=== PATIENT | male | born 1945 | race Caucasian/White ===

== ENCOUNTER 2020-08-24 13:41 | Inpatient (IN) | payer MEDICARE, OTHER ==
[~2020-08-24] VITALS: Ht 172.7 cm; Wt 83.9 kg
[2020-08-24 15:29] LABS: HEMOGLOBIN 12.5 gm/dl (14.0-17.5); RED BLOOD COUNT 4.14 M/UL (4.20-5.50); WHITE BLOOD COUNT 11.7 K/UL (4.5-11.0)
[2020-08-24] MEDS ORDERED: ATORVASTATIN CA20 MG PO (15:36)
[2020-08-24] MEDS ORDERED: MOBIC7.5 MG PO (15:37)
[2020-08-24] MEDS ORDERED: PROPRANOLOL HCL20 MG PO (15:38)
[2020-08-24] MEDS ORDERED: NORCO 5-325 TA1 EACH PO (15:38)
[2020-08-24] MEDS ORDERED: GLUCOPHAGE500 MG PO (15:50)
[2020-08-24] MEDS ORDERED: MYLANTA MAXIMU355 ML PO (15:51)
[2020-08-24] MEDS ORDERED: MIRALAX17 GM PO (15:51)
[2020-08-24] MEDS ORDERED: DOCUSATE SODIU250 MG PO (15:52)
[2020-08-24] MEDS ORDERED: LACTULOSE20 GM/30 M PO (15:53)
[2020-08-24] MEDS ORDERED: VOLTAREN ARTHRI20 GM TOP (15:53)
[2020-08-24 16:13] LABS: BUN/CREATININE RATIO 26 (0-10)
[2020-08-25 03:19] LABS: HEMOGLOBIN 12.1 gm/dl (14.0-17.5); WHITE BLOOD COUNT 11.3 K/UL (4.5-11.0)
[2020-08-25 03:52] LABS: BUN/CREATININE RATIO 27 (0-10)
--- NOTE | 2020-08-25 15:38 | NUR ---
SPOKE WITH DR UNDERWOOD REGARDING THE NEED FOR HIM TO CALL OF PATIENT AND EXPLAIN TO HER THE SITUATION WITH THIS PATIENT. FROM MY UNDERSTANDING DR KAHN HAS DECIDED THE PATIENT IS UNABLE TO HAVE THE PROCEDURE OF PACEMAKER IMPLANTATION AT THIS TIME DUE TO AGE AND HEALTH ISSUES. I ASKED DR UNDERWOOD TO SPEAK WITH HIS TO TRY AND EXPLAIN THE SITUATION. I SPOKE WITH [facility] CUELLO EARLIER TODAY AND THEY STATE THAT A NURSE OR TRACER POWDER BLENDER CAN ALSO BE ON THE PHONE CALL WITH HIS DUE TO THE FACT THAT SHE IS PLEASANTLY CONFUSED SO THAT THEY CAN EXPLAIN AND REASSURE HER OF THE SITUATION. DR UNDERWOOD STATES HE WOULD BE HAPPY TO CALL AND SPEAK WITH THE PATIENTS . HER NAME AND PHONE NUMBER WAS GIVEN TO DR UNDERWOOD.
--- NOTE | 2020-08-25 23:28 | NUR ---
PATIENT STATES HE WOULD "RATHER HAVE A BED SORE THAN BE TURNED". PATIENT TURNED ONTO HIS RIGHT SIDE, AND IMMEDIATELY ROTATED BACK TO HIS LEFT SIDE. DISCUSSION WITH PATIENT ON THE NEED TO TURN AND GET OFF HIS LEFT SIDE, BUT HAS THE STRENGTH AND CAPABILITY TO TURN HIMSELF BACK OVER, ONCE TURNED ONTO HIS RIGHT SIDE.
[2020-08-26 02:18] LABS: HEMOGLOBIN 11.9 gm/dl (14.0-17.5); RED BLOOD COUNT 3.9 M/UL (4.20-5.50)
[2020-08-26 02:37] LABS: BUN/CREATININE RATIO 22 (0-10)
[2020-08-26] MEDS ORDERED: ELIQUIS 5 MG TAB5 MG PO (10:58)
[2020-08-26] MEDS ORDERED: IPRAT-ALBUT 0.5-3 ML INH (11:02)
== END 2020-08-26 19:00 | DRG 308 ==
LOC: PROG CARE 13:51
PROVIDERS: Internal Medicine Infectious Disease; ADMIT Internal Medicine
PROC: 8E0ZXY6 Isolation (ICD-10-PCS; principal; 2020-08-24)
DX: I48.92 Unspecified atrial flutter (principal); J96.01 Acute respiratory failure with hypoxia; U07.1 COVID-19; J12.82 Pneumonia due to coronavirus disease 2019; T83.511A Infection and inflammatory reaction due to indwelling urethral catheter, initial encounter; G82.20 Paraplegia, unspecified; N30.00 Acute cystitis without hematuria; E87.1 Hypo-osmolality and hyponatremia; R00.1 Bradycardia, unspecified; I44.2 Atrioventricular block, complete; Z74.01 Bed confinement status; I69.319 Unspecified symptoms and signs involving cognitive functions following cerebral infarction; E11.9 Type 2 diabetes mellitus without complications; I10 Essential (primary) hypertension; E78.5 Hyperlipidemia, unspecified; B96.89 Other specified bacterial agents as the cause of diseases classified elsewhere; H91.90 Unspecified hearing loss, unspecified ear; N40.0 Benign prostatic hyperplasia without lower urinary tract symptoms; F03.90 Unspecified dementia, unspecified severity, without behavioral disturbance, psychotic disturbance, mood disturbance, and anxiety; Z79.84 Long term (current) use of oral hypoglycemic drugs; Z79.899 Other long term (current) drug therapy
CPT/HCPCS: 36415; 71045; 80053; 81001; 82550; 82553; 82962; 83735; 84443; 84484; 85025; 85027; 85730; 87077; 87086; 87186; 93005; 94640; 94664; 94760; 97163; A6212; J1335; J2930